=== PATIENT | female | born 1955 | race Caucasian/White ===

== ENCOUNTER → 2017-07-05 16:23 | Outpatient (CLI) | payer OTHER ==
[2012-12-02 09:54] VITALS: BMI 31.6
[~2017-07-05 16:23] MED LIST: EXFORGE 5-160 M1 TAB; LEVAQUIN750 MG PO; LEXAPRO5 MG PO; MOTRIN400 MG PO; NORCO 10/325 TA1 TA1 PO; TRILIPIX135 MG PO
== END | disposition home or self-care (01) ==
LOC: D.MAMMO 11:00
DX: Z12.31 Encounter for screening mammogram for malignant neoplasm of breast (principal)